=== PATIENT | female | born 2000 | race African-American/Black ===

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

== ENCOUNTER 2022-03-31 14:43 | Emergency (ER) | payer BC ==
[2022-03-31] MEDS ORDERED: ACETAMINOPHEN 1000 MG/100 ML BAG IVPB ONE (15:07)
[2022-03-31] MEDS ORDERED: ONDANSETRON 4 MG/2 ML VIAL IVPUSH ONE (15:07)
[2022-03-31] MEDS ORDERED: SODIUM CHLORIDE 0.9% 500 ML INFUS.BAG IV ONE (15:07)
[2022-03-31 15:17] VITALS: BP 124/79; PULSE 110; RESP 18; TEMP 97.7; BMI 26.9
[2022-03-31] MEDS ORDERED: ONDANSETRON 4 MG/2 ML VIAL ONE (15:34)
[2022-03-31] MEDS ORDERED: ACETAMINOPHEN INJECTION 100 ML IVPB ONE (15:34)
[2022-03-31 15:58] LABS: HEMATOCRIT 39.7 % (32.4-45.2); HEMOGLOBIN 14.1 G/dL (10.7-15.3); MCH 31.8 pg (25.7-33.7); MCHC 35.6 g/dl (32.0-36.0); MEAN CELL VOLUME 89.4 fl (80-96); RBC 4.44 10^6/uL (3.60-5.2); RDW 12.8 % (11.6-15.6); WHITE BLOOD COUNT 5.9 10^3/uL (4.0-10.8)
[2022-03-31 16:06] LABS: ALK PHOS 48 U/L (45-117); ANION GAP 7 MMOL/L (8-16); BILIRUBIN,TOTAL 0.9 mg/dl (0.2-1); CALCIUM 8.8 mg/dl (8.5-10); CHLORIDE 105 mmol/L (98-107); CO2 22 mmol/L (21-32); CREATININE 0.8 mg/dl (0.55-1.3); GLUCOSE,RANDOM 93 mg/dl (74-106); MAGNESIUM 1.9 mg/dL (1.8-2.4); SGOT/AST 30 U/L (15-37); SGPT/ALT 30 U/L (13-61); SODIUM 134 mmol/L (136-145); TOT PROT 7.6 g/dl (6.4-8.2)
[2022-03-31] MEDS ORDERED: POTASSIUM CHLORIDE TABS 20 MEQ TABLET.ER (FP) PO ONE ×2 (16:10→16:12)
[2022-03-31 17:30] LABS: LIPASE 160 U/L (73-393)
[2022-03-31 17:53] LABS: PLATELET ESTIMATE ADEQUATE
== END 2022-03-31 17:54 | disposition home or self-care (01) ==
LOC: FER 14:43
PROC: 3E0333Z Introduction of Anti-inflammatory into Peripheral Vein, Percutaneous Approach (ICD-10-PCS; principal; 2022-03-31)
PROC: 3E033GC Introduction of Other Therapeutic Substance into Peripheral Vein, Percutaneous Approach (ICD-10-PCS; 2022-03-31)
DX: J09.X2 Influenza due to identified novel influenza A virus with other respiratory manifestations (principal); R05.1 Acute cough; R09.81 Nasal congestion
CPT/HCPCS: 0241U-QW; 36415; 71046-TC-FY; 80053; 81003; 83690; 83735; 84702; 85027; 93005; 99285-25

== ENCOUNTER 2023-01-18 22:13 | Emergency (ER) | payer BC ==
[2023-01-18 22:42] VITALS: BP 129/80; PULSE 109; RESP 19; TEMP 100; BMI 26.6
[2023-01-18] MEDS ORDERED: IBUPROFEN 600 MG TABLET (FP) PO ONE (23:26)
[2023-01-18] MEDS ORDERED: ALBUTEROL SO4 2.5/IPRATROPIUM 0.5 INH SOL 3 ML VIAL.NEB. NEB ONE (23:26)
[2023-01-19 01:27] LABS: EPI CELLS >36 /uL (0-25.1); HYALINE CASTS 0 /uL (0-3.1); PH,URINE 6.5 (5.0-8.0); URINE APPEARANCE CLEAR; URINE BACTERIA 2127 /uL (0-1359); URINE BILIRUBIN NEGATIVE (NEGATIVE); URINE COLOR YELLOW; URINE GLUCOSE (UA) NEGATIVE (NEGATIVE); URINE KETONE NEGATIVE (NEGATIVE); URINE LEUK ESTERASE 1+ (NEGATIVE); URINE NITRITE NEGATIVE (NEGATIVE); URINE PROTEIN NEGATIVE (NEGATIVE); URINE RBC 5 /uL (0-23.9); URINE WBC 55 /uL (0-25.8)
== END 2023-01-19 01:25 | disposition home or self-care (01) ==
LOC: FER 22:13 → JER 22:13 → FER 01-19 01:25
PROC: 3E0F7GC Introduction of Other Therapeutic Substance into Respiratory Tract, Via Natural or Artificial Opening (ICD-10-PCS; principal; 2023-01-18)
DX: R05.9 Cough, unspecified (principal); R09.81 Nasal congestion; J40 Bronchitis, not specified as acute or chronic; Z20.822 Contact with and (suspected) exposure to COVID-19
CPT/HCPCS: 0241U-QW; 36415; 71046-TC-FY; 81003; 81025; 87086; 87491; 87591; 99284-25